=== PATIENT | male | born 1960 | race Caucasian/White ===

== ENCOUNTER 2018-02-04 17:04 | Inpatient (IN) ==
[2018-02-04] MEDS ORDERED: ONDANSETRON 4 MG/2 ML VIAL IV PRN (17:20)
[2018-02-04] MEDS ORDERED: ACETAMINOPHEN 325 MG TABLET PO PRN (17:20)
[2018-02-04] MEDS ORDERED: ALUM/MAG/SIMETH/LIDO VISC 1:1 30 ML BOTTLE PO PRN (17:20)
[2018-02-04] MEDS ORDERED: MORPHINE 4 MG/1 ML VIAL IV PRN (17:20)
[2018-02-04] MEDS ORDERED: TICAGRELOR 90 MG TABLET PO ONE (17:20)
[2018-02-04] MEDS ORDERED: ZALEPLON 5 MG CAPSULE PO PRN (17:20)
[2018-02-04] MEDS ORDERED: MAGNESIUM HYDROXIDE SUSP 30 ML UDCUP PO PRN (17:20)
[2018-02-04] MEDS ORDERED: POTASSIUM CHLORIDE RIDER 10 MEQ in PREMIX 1 EACH IV PRN (17:27)
[2018-02-04] MEDS ORDERED: MAGNESIUM SULF RIDER 2 GM in PREMIX 1 EACH IV PRN (17:27)
[2018-02-04] MEDS ORDERED: diphenhydrAMINE CAP 25 MG CAPSULE PO PRN (17:28)
[2018-02-04] MEDS ORDERED: NITROGLYCERIN 2% OINT 1 INCH/GM PACK TOP SCH (18:00)
[2018-02-04 19:35] LABS: Basophils % 0.3 % (0.0-0.8); Eosinophils # 0.1 10*3/uL (0.0-0.87); Eosinophils % 0.6 % (0.00-10.9); Hemoglobin 15.4 GM/DL (14.0-18.0); Immature Granulocytes % 0.5 %; Immature Granulocytes Absolute 0.06 #; Lymphocytes % 24.4 % (21.2-54.2); Mean Corpuscular HGB Conc 36.7 GM/DL (32-36); Mean Corpuscular Hemoglobin 33 PG (27-34); Mean Corpuscular Volume 90.7 FL (87-102); Monocytes # 0.9 10*3/uL (0.11-0.8); Monocytes % 7.1 % (1.7-12.7); Neutrophils # 8.3 10*3/uL (1.4-7.4); Neutrophils % 67.1 % (38.7-73.9); Platelet Count 137 T/CUMM (130-400); Red Blood Count 4.63 MC/CUMM (3.8-5.5); White Blood Count 12.4 T/CUMM (4-12)
[2018-02-04 19:49] LABS: PT Patient Result 10.6 SECS
[2018-02-04 19:56] LABS: Albumin 3.6 G/DL (3.4-5.0); Bilirubin,Total 1.5 MG/DL (0.2-1.0); Calcium 8.6 MG/DL (8.5-10.1); Osmolality,Calculated 278.4 MOS/KG (273-304); Potassium 3.8 MMOL/L (3.5-5.1); Total Protein 6.7 G/DL (6.4-8.3)
[2018-02-04] MEDS ORDERED: ROSUVASTATIN 20 MG TABLET PO SCH (21:00)
[2018-02-04] MEDS ORDERED: ENALAPRIL 2.5 MG TABLET PO SCH (21:00)
[2018-02-04] MEDS ORDERED: CARVEDILOL 6.25 MG TABLET PO SCH (21:00)
[2018-02-04] MEDS ORDERED: HEPARIN/NACL 0.9% 2 UNITS/ML 1,000 ML IV ONE (21:25)
[2018-02-04] MEDS ORDERED: VERAPAMIL 5 MG/2 ML VIAL ONE (21:26)
[2018-02-04] MEDS ORDERED: NITROGLYCERIN DRIP 50 MG/250 ML BOTTLE IV ONE (21:26)
[2018-02-04] MEDS ORDERED: DIAZEPAM 5 MG TABLET PO ONE (21:30)
[2018-02-04] MEDS ORDERED: diphenhydrAMINE CAP 25 MG CAPSULE PO ONE (21:30)
[2018-02-04] MEDS ORDERED: fentaNYL 100 MCG/2 ML VIAL ONE (21:36)
[2018-02-04] MEDS ORDERED: MIDAZOLAM 2 MG/2 ML VIAL ONE ×2 (21:36→21:50)
[2018-02-04] MEDS ORDERED: LIDOCAINE 1% 20 ML VIAL ONE (21:42)
[2018-02-04] MEDS ORDERED: ENOXAPARIN 60 MG/0.6 ML SYRINGE ONE (21:49)
[2018-02-04] MEDS ORDERED: VANCOMYCIN 1,000 MG VIAL ONE (22:59)
[2018-02-04] MEDS ORDERED: TISSUE ADHESIVE 1 EACH APPLICATOR TOP ONE (22:59)
[2018-02-04] MEDS ORDERED: PAPAVERINE 60 MG/2 ML VIAL ONE (22:59)
[2018-02-04] MEDS ORDERED: CEFUROXIME INJ 1,500 MG in SYRINGE 1 EACH IV ONE (23:30)
[2018-02-05] MEDS ORDERED: CEFUROXIME 1,500 MG VIAL ONE (00:01)
[2018-02-05] MEDS ORDERED: SODIUM CHLORIDE 0.45% 1,000 ML IV SCH (00:30)
[2018-02-05 00:32] LABS: ABG Base Excess -0.6 MMOL/L (-2.5-2.5); ABG Oxygen Saturation 99.9 % (95-100); ABG PCO2 35.1 MM HG (35-48); ABG PH 7.427 (7.35-7.45); ABG TCO2 19.8 MMOL/L (23-27); Glucose Heart Surgery 118 MG/DL (74-106); Hematocrit Heart Surgery 43.6 PERCENT (42-52); Hemoglobin Heart Surgery 14.2 G/DL (14.0-18.0); Ionized Calcium Arterial 1.15 MMOL/L (1.21-1.46); PCO2 Patient Temp Arterial 35.1 MMHG; PH Patient Temp Arterial 7.427; Patient Temperature 37 CELCIUS; Potassium Heart/CVR 4.2 MMOL/L (3.5-5.1); Sodium Heart/CVR 137 MMOL/L (135-145)
[2018-02-05 01:26] LABS: Apearance,Urine CLEAR (Clear); Bilirubin,Urine Negative (Negative); Blood, Urine Negative (Negative); Glucose,Urine (UA) Negative (Negative); Ketones,Urine Negative (Negative); Mucus,Urine Occasional /LPF (Occasional); Nitrite,Urine Negative (Negative); Protein,Urine Negative; RBC,Urine <1 /HPF (0-4); Squamous Epithelial Cell,Urine Occasional /HPF (0-10); Urine Color Yellow (Yellow); Urine Specific Gravity 1.053 (1.001-1.035)
[2018-02-05] MEDS ORDERED: CALCIUM CHLORIDE 1,000 MG/10 ML SYRINGE IV ONE (01:48)
[2018-02-05] MEDS ORDERED: EPINEPHrine 1 MG/10 ML SYRINGE ONE (01:48)
[2018-02-05 02:21] LABS: Hematocrit Heart Surgery 31.3 PERCENT (42-52); Hemoglobin Heart Surgery 10.1 G/DL (14.0-18.0); PCO2 Patient Temp Venous 40.9 MM HG; PH Patient Temp Venous 7.387; PO2 Patient Temp Venous 42.4 MM HG; Potassium Heart/CVR 5.2 MMOL/L (3.5-5.1); VBG Base Excess -0.3 MEQ/L (0-4); VBG HCO3 23.8 MEQ/L (24-28); VBG Oxygen Saturation 79.4 %; VBG PCO2 40.9 MMHG (41-51); VBG PH 7.387; VBG PO2 42.4 MMHG (17-40)
[2018-02-05 02:59] LABS: Hematocrit Heart Surgery 34.7 PERCENT (42-52); Hemoglobin Heart Surgery 11.3 G/DL (14.0-18.0); PCO2 Patient Temp Venous 39.6 MM HG; PH Patient Temp Venous 7.397; PO2 Patient Temp Venous 45.7 MM HG; Potassium Heart/CVR 5.2 MMOL/L (3.5-5.1); VBG Base Excess -0.3 MEQ/L (0-4); VBG HCO3 23.9 MEQ/L (24-28); VBG Oxygen Saturation 83.2 %; VBG PCO2 39.6 MMHG (41-51); VBG PH 7.397; VBG PO2 45.7 MMHG (17-40)
[2018-02-05] MEDS ORDERED: THROMBIN TOPICAL (RECOMBINANT) 5,000 UNIT VIAL TOP ONE (03:51)
[2018-02-05 03:59] LABS: ABG PCO2 35.8 MM HG (35-48); ABG PH 7.387 (7.35-7.45); ABG TCO2 19.3 MMOL/L (23-27); Glucose Heart Surgery 245 MG/DL (74-106); Hematocrit Heart Surgery 34.3 PERCENT (42-52); Hemoglobin Heart Surgery 11.1 G/DL (14.0-18.0); PCO2 Patient Temp Arterial 35.8 MMHG; PH Patient Temp Arterial 7.387; Patient Temperature 37 CELCIUS; Potassium Heart/CVR 4.7 MMOL/L (3.5-5.1); Sodium Heart/CVR 132 MMOL/L (135-145)
[2018-02-05] MEDS ORDERED: PROTAMINE SULFATE 250 MG/25 ML VIAL IV ONE (03:59)
[2018-02-05] MEDS ORDERED: MAGNESIUM SULFATE 10 GM/20 ML VIAL IV ONE (03:59)
[2018-02-05] MEDS ORDERED: ALBUMIN 25% 25 GM/100 ML VIAL IV ONE (03:59)
[2018-02-05] MEDS ORDERED: DEXTROSE 5% KCL 20 MEQ 20 MEQ/1,000 ML BAG IV ONE (03:59)
[2018-02-05] MEDS ORDERED: HEPARIN 10,000 UNIT/10 ML VIAL ONE (03:59)
[2018-02-05] MEDS ORDERED: SODIUM BICARBONATE 50 MEQ/50 ML SYRINGE IV ONE (03:59)
[2018-02-05] MEDS ORDERED: PROTAMINE SULFATE 50 MG/5 ML VIAL IV ONE (04:00)
[2018-02-05] MEDS ORDERED: MANNITOL 12.5 GM/50 ML VIAL IV ONE (04:00)
[2018-02-05] MEDS ORDERED: FUROSEMIDE 20 MG/2 ML VIAL ONE (04:00)
[2018-02-05] MEDS ORDERED: methylPREDNISolone SOD SUC 1,000 MG/8 ML VIAL ONE (04:00)
[2018-02-05] MEDS ORDERED: ALBUMIN 5% 12.5 GM/250 ML VIAL IV ONE ×2 (04:07→05:45)
[2018-02-05] MEDS: PHENYLEPHRINE DRIP 40 MG/250 ML PREMIX IV PRN ×2 (05:00→13:30)
[2018-02-05] MEDS ORDERED: MIDAZOLAM 2 MG/2 ML VIAL ONE ×2 (05:18→05:42)
[2018-02-05] MEDS ORDERED: CALCIUM CHLORIDE 1,000 MG/10 ML VIAL IV ONE (05:36)
[2018-02-05] MEDS ORDERED: PROPOFOL 200 MG/20 ML VIAL IV ONE (05:36)
[2018-02-05] MEDS ORDERED: SEVOFLURANE 1 UNIT/15 MINUTE INH ONE (05:37)
[2018-02-05] MEDS ORDERED: MIDAZOLAM 10 MG/2 ML VIAL ONE ×2 (05:37→06:07)
[2018-02-05] MEDS ORDERED: HEPARIN/NACL 0.9% 2 UNITS/ML 500 ML IV ONE (05:37)
[2018-02-05] MEDS ORDERED: PHENYLEPHRINE 10 MG/1 ML VIAL IV ONE (05:38)
[2018-02-05] MEDS ORDERED: NITROGLYCERIN DRIP 50 MG/250 ML BOTTLE IV ONE (05:38)
[2018-02-05] MEDS ORDERED: ePHEDrine 50 MG/ML AMP ONE (05:38)
[2018-02-05] MEDS ORDERED: VECURONIUM 10 MG VIAL IV ONE (05:38)
[2018-02-05] MEDS ORDERED: PHENYLEPHRINE 1 MG/10 ML SYRINGE IV ONE (05:38)
[2018-02-05] MEDS ORDERED: ETOMIDATE 40 MG/20 ML VIAL IV ONE (05:38)
[2018-02-05] MEDS ORDERED: AMINOCAPROIC ACID 5,000 MG/20 ML VIAL IV ONE (05:38)
[2018-02-05] MEDS ORDERED: SUCCINYLCHOLINE 200 MG/10 ML VIAL ONE (05:39)
[2018-02-05] MEDS ORDERED: SODIUM CHLORIDE 0.9% 2,000 ML IV ONE (05:39)
[2018-02-05] MEDS ORDERED: SODIUM CHLORIDE 0.9% 100 ML IV ONE (05:39)
[2018-02-05] MEDS ORDERED: LACTATED RINGERS 1,000 ML IV ONE (05:39)
[2018-02-05] MEDS ORDERED: SODIUM CHLORIDE 0.9% 250 ML IV ONE (05:39)
[2018-02-05] MEDS ORDERED: MIDAZOLAM 2 MG/2 ML VIAL IV ONE ×2 (05:45→06:30)
[2018-02-05] MEDS ORDERED: MAGNESIUM SULF RIDER 4 GM in PREMIX 1 EACH IV PRN (06:11)
[2018-02-05] MEDS ORDERED: MAGNESIUM SULF RIDER 2 GM in PREMIX 1 EACH IV PRN (06:11)
[2018-02-05] MEDS ORDERED: DEXTROSE 50% 25 GM/50 ML VIAL IV PRN ×2 (06:11)
[2018-02-05] MEDS ORDERED: POTASSIUM CHLORIDE RIDER 10 MEQ in PREMIX 1 EACH IV PRN (06:11)
[2018-02-05] MEDS ORDERED: INSULIN REGULAR 100 UNIT/ML IV PRN (06:11)
[2018-02-05] MEDS ORDERED: MORPHINE 10 MG/1 ML VIAL IV PRN (06:11)
[2018-02-05] MEDS ORDERED: CHLORHEXIDINE 4% SOLN 118 ML BOTTLE TOP PRN (06:11)
[2018-02-05] MEDS ORDERED: INSULIN REGULAR DRIP 100 ML IV SCH (06:11)
[2018-02-05] MEDS ORDERED: CALCIUM CHLORIDE 1,000 MG/10 ML SYRINGE IV PRN (06:11)
[2018-02-05] MEDS ORDERED: ACETAMINOPHEN 650 MG SUPP RECTAL PRN (06:11)
[2018-02-05] MEDS ORDERED: MIDAZOLAM 2 MG/2 ML VIAL IV PRN (06:11)
[2018-02-05] MEDS ORDERED: SODIUM CHLORIDE 0.9% 250 ML IV PRN (06:11)
[2018-02-05] MEDS: SODIUM CHLORIDE 0.45% 1,000 ML IV SCH ×3 (06:28→21:57)
[2018-02-05] MEDS: ALBUMIN 5% 12.5 GM in PREMIX 1 EACH IV PRN ×3 (06:28→13:15)
[2018-02-05 06:31] LABS: Hematocrit Heart Surgery 29.6 PERCENT (42-52); Hemoglobin Heart Surgery 9.6 G/DL (14.0-18.0); PCO2 Patient Temp Venous 45.4 MM HG; PH Patient Temp Venous 7.311; PO2 Patient Temp Venous 36.6 MM HG; Potassium Heart/CVR 3.7 MMOL/L (3.5-5.1); VBG Base Excess -3.3 MEQ/L (0-4); VBG HCO3 21.2 MEQ/L (24-28); VBG Oxygen Saturation 66.2 %; VBG PCO2 45.4 MMHG (41-51); VBG PH 7.311; VBG PO2 36.6 MMHG (17-40)
[2018-02-05 06:37] LABS: INR 1.1; PT Patient Result 11.7 SECS; Partial Thromboplastin Time 28.3 SECS (0-40)
[2018-02-05 06:41] LABS: Blood Urea Nitrogen 13 MG/DL (7-18); Calcium 7.4 MG/DL (8.5-10.1); Glucose 205 MG/DL (74-106); Osmolality,Calculated 282.5 MOS/KG (273-304); Sodium 139 MMOL/L (136-145)
[2018-02-05 06:42] LABS: Basophils % 0.1 % (0.0-0.8); Eosinophils % 0.1 % (0.00-10.9); Hematocrit 28.5 VOL% (42.0-52.0); Immature Granulocytes Absolute 0.18 #; Lymphocytes # 1.3 10*3/uL (1.4-4.0); Lymphocytes % 7.1 % (21.2-54.2); Mean Corpuscular HGB Conc 35.1 GM/DL (32-36); Mean Corpuscular Hemoglobin 33 PG (27-34); Mean Corpuscular Volume 93.8 FL (87-102); Mean Platelet Volume 11.3 FL (9.6-12.0); Monocytes # 1.2 10*3/uL (0.11-0.8); Monocytes % 6.3 % (1.7-12.7); Neutrophils # 15.6 10*3/uL (1.4-7.4); Neutrophils % 85.4 % (38.7-73.9)
[2018-02-05 06:43] LABS: Red Blood Count 3.04 MC/CUMM (3.8-5.5); White Blood Count 18.2 T/CUMM (4-12)
[2018-02-05 06:44] LABS: Lactic Acid 2.8 MMOL/L (0.4-2.0); Platelet Count 186 T/CUMM (130-400)
[2018-02-05 06:59] LABS: ABG Base Excess -2.4 MMOL/L (-2.5-2.5); ABG HCO3 22.4 MMOL/L (20-26); ABG Oxygen Saturation 99.7 % (95-100); ABG PCO2 39.7 MM HG (35-48); ABG PH 7.365 (7.35-7.45); ABG TCO2 20.8 MMOL/L (23-27); Glucose Heart Surgery 215 MG/DL (74-106); Hematocrit Heart Surgery 29.8 PERCENT (42-52); Hemoglobin Heart Surgery 9.6 G/DL (14.0-18.0); Potassium Heart/CVR 4.1 MMOL/L (3.5-5.1)
[2018-02-05 07:10] LABS: Band Neutrophils 6 % (0-10); Hypochromasia 1+; Lymphocytes 8 % (20-55); Segmented Neutrophils 85 % (50-85); Total Cells Counted 100
[2018-02-05 07:11] LABS: Microcytosis 1+; Platelet Estimate Adequate
[2018-02-05] MEDS: MORPHINE 4 MG/1 ML VIAL IV PRN ×5 (07:54→19:06)
[2018-02-05] MEDS: DEXMEDETOMIDINE 200 MCG in SODIUM CHLORIDE 0.9% 48 ML IV PRN ×2 (08:04→12:15)
[2018-02-05] MEDS ORDERED: CHLORHEXIDINE 4% SOLN 118 ML BOTTLE TOP SCH (09:00)
[2018-02-05] MEDS ORDERED: ASPIRIN EC 81 MG TABLET PO SCH (09:00)
[2018-02-05] MEDS ORDERED: PANTOPRAZOLE 40 MG TABLET PO SCH (09:00)
[2018-02-05] MEDS ORDERED: CHLORHEXIDINE 0.12% ORAL RINSE 60 ML BOTTLE SWISH/SPIT SCH (09:00)
[2018-02-05] MEDS ORDERED: ASPIRIN EC 325 MG TABLET PO SCH (09:00)
[2018-02-05] MEDS: CHLORHEXIDINE 0.12% ORAL RINSE 60 ML BOTTLE SWISH/SPIT SCH ×2 (09:05→21:08)
[2018-02-05] MEDS: ONDANSETRON 4 MG/2 ML VIAL IV PRN (11:00)
[2018-02-05 11:10] LABS: ABG Base Excess -2.7 MMOL/L (-2.5-2.5); ABG HCO3 21.8 MMOL/L (20-26); ABG Oxygen Saturation 96.6 % (95-100); ABG PCO2 36.4 MM HG (35-48); ABG PH 7.395 (7.35-7.45); ABG PO2 96.8 MM HG (80-95); ABG TCO2 22.9 MMOL/L (23-27); Glucose Heart Surgery 167 MG/DL (74-106); Hemoglobin Heart Surgery 10.3 G/DL (14.0-18.0); Potassium Heart/CVR 3.7 MMOL/L (3.5-5.1)
[2018-02-05] MEDS: POTASSIUM CHLORIDE RIDER 20 MEQ in PREMIX 1 EACH IV PRN (11:35)
[2018-02-05] MEDS: CEFUROXIME INJ 1,500 MG in SODIUM CHLORIDE 0.9% 100 ML IV SCH (11:50)
[2018-02-05 12:54] LABS: ABG Base Excess -2.4 MMOL/L (-2.5-2.5); ABG HCO3 22.4 MMOL/L (20-26); ABG Oxygen Saturation 97.6 % (95-100); ABG PCO2 38.5 MM HG (35-48); ABG PH 7.374 (7.35-7.45); ABG PO2 88.6 MM HG (80-95); ABG TCO2 20.7 MMOL/L (23-27); Glucose Heart Surgery 145 MG/DL (74-106); Hemoglobin Heart Surgery 9.4 G/DL (14.0-18.0); Potassium Heart/CVR 4.1 MMOL/L (3.5-5.1)
[2018-02-05] MEDS: KETOROLAC 15 MG/1 ML VIAL IV PRN (18:58)
[2018-02-05] MEDS: INSULIN REGULAR 100 UNIT/ML SUBCUT SCH (20:08)
[2018-02-05] MEDS ORDERED: METOPROLOL TARTRATE 5 MG/5 ML VIAL IV ONE (20:54)
[2018-02-05] MEDS ORDERED: ASPIRIN 325 MG TABLET PO ONE (20:54)
[2018-02-05] MEDS: COSOPT PF BOTH EYES SCH (22:00)
[2018-02-06] MEDS: INSULIN REGULAR 100 UNIT/ML SUBCUT SCH ×7 (00:02→23:49)
[2018-02-06] MEDS: CEFUROXIME INJ 1,500 MG in SODIUM CHLORIDE 0.9% 100 ML IV SCH ×2 (00:05→11:38)
[2018-02-06] MEDS: SODIUM CHLORIDE 0.45% 1,000 ML IV SCH ×2 (01:14→13:16)
[2018-02-06 04:42] LABS: Basophils % 0.1 % (0.0-0.8); Hematocrit 23.8 VOL% (42.0-52.0); Hemoglobin 8.6 GM/DL (14.0-18.0); Immature Granulocytes Absolute 0.19 #; Lymphocytes # 0.9 10*3/uL (1.4-4.0); Lymphocytes % 4.5 % (21.2-54.2); Mean Corpuscular HGB Conc 36.1 GM/DL (32-36); Mean Corpuscular Hemoglobin 34 PG (27-34); Mean Corpuscular Volume 93.3 FL (87-102); Mean Platelet Volume 11.8 FL (9.6-12.0); Monocytes # 1.4 10*3/uL (0.11-0.8); Monocytes % 7.2 % (1.7-12.7); Neutrophils # 17.4 10*3/uL (1.4-7.4); Neutrophils % 87.2 % (38.7-73.9); Platelet Count 109 T/CUMM (130-400); Red Blood Count 2.55 MC/CUMM (3.8-5.5); Red Cell Distribution Width 12.2 % (9.3-17.3); White Blood Count 19.9 T/CUMM (4-12)
[2018-02-06 04:49] LABS: Calcium 7.4 MG/DL (8.5-10.1); Osmolality,Calculated 284.3 MOS/KG (273-304); Potassium 4.1 MMOL/L (3.5-5.1)
[2018-02-06] MEDS: POTASSIUM CHLORIDE RIDER 20 MEQ in PREMIX 1 EACH IV PRN (05:01)
[2018-02-06] MEDS: ONDANSETRON 4 MG/2 ML VIAL IV PRN (05:02)
[2018-02-06] MEDS: KETOROLAC 15 MG/1 ML VIAL IV PRN ×2 (05:05→21:01)
[2018-02-06 05:06] LABS: Band Neutrophils 5 % (0-10); Lymphocytes 6 % (20-55); Segmented Neutrophils 87 % (50-85)
[2018-02-06 05:07] LABS: Platelet Estimate Adequate; Total Cells Counted 100
[2018-02-06] MEDS: MORPHINE 4 MG/1 ML VIAL IV PRN ×3 (05:11→15:23)
[2018-02-06] MEDS: ASPIRIN EC 325 MG TABLET PO SCH (08:47)
[2018-02-06] MEDS: COSOPT PF BOTH EYES SCH ×2 (08:48→21:55)
[2018-02-06] MEDS: CHLORHEXIDINE 0.12% ORAL RINSE 60 ML BOTTLE SWISH/SPIT SCH ×2 (08:51→21:55)
[2018-02-06] MEDS: PANTOPRAZOLE 40 MG VIAL IV SCH (08:51)
[2018-02-06] MEDS ORDERED: DORZOLAMIDE/TIMOLOL OPH SOLN 10 ML BOTTLE BOTH EYES SCH (09:00)
[2018-02-06] MEDS ORDERED: FUROSEMIDE 40 MG/4 ML VIAL IV ONE ×2 (09:30→20:17)
[2018-02-06] MEDS: METOPROLOL TARTRATE 25 MG TABLET PO SCH ×2 (10:17→21:02)
[2018-02-06] MEDS: FUROSEMIDE 40 MG TABLET PO SCH (10:23)
[2018-02-06] MEDS ORDERED: ALBUTEROL 2.5 MG/3 ML NEB RESP TX PRN (15:41)
[2018-02-06 16:56] LABS: ABG Base Excess 0.1 MMOL/L (-2.5-2.5); ABG HCO3 24.4 MMOL/L (20-26); ABG Oxygen Saturation 93.8 % (95-100); ABG PCO2 33.9 MM HG (35-48); ABG PH 7.451 (7.35-7.45); ABG PO2 63.8 MM HG (80-95); ABG TCO2 21.4 MMOL/L (23-27)
[2018-02-06 18:45] LABS: Hematocrit 27.3 VOL% (42.0-52.0); Hemoglobin 9.7 GM/DL (14.0-18.0)
[2018-02-06] MEDS ORDERED: ALBUMIN 5% 12.5 GM in PREMIX 1 EACH IV ONE (20:23)
[2018-02-06] MEDS ORDERED: LEVOFLOXACIN INJ 750 MG in PREMIX 1 EACH IV SCH (21:00)
[2018-02-06] MEDS: ATORVASTATIN 40 MG TABLET PO SCH (21:02)
[2018-02-06] MEDS: AZTREONAM 1,000 MG in SYRINGE 1 EACH IV SCH (21:54)
[2018-02-06] MEDS: VANCOMYCIN INJ 1,750 MG in SODIUM CHLORIDE 0.9% 500 ML IV SCH (22:48)
[2018-02-07 05:00] LABS: Hematocrit 24.8 VOL% (42.0-52.0); Hemoglobin 8.5 GM/DL (14.0-18.0); Mean Corpuscular HGB Conc 34.3 GM/DL (32-36); Mean Corpuscular Hemoglobin 31 PG (27-34); Mean Corpuscular Volume 91.5 FL (87-102); Red Blood Count 2.71 MC/CUMM (3.8-5.5); Red Cell Distribution Width 16.4 % (9.3-17.3); White Blood Count 18.3 T/CUMM (4-12)
[2018-02-07 05:01] LABS: Basophils % 0.1 % (0.0-0.8); Immature Granulocytes % 0.8 %; Immature Granulocytes Absolute 0.15 #; Lymphocytes # 1.4 10*3/uL (1.4-4.0); Lymphocytes % 7.4 % (21.2-54.2); Mean Platelet Volume 11.8 FL (9.6-12.0); Monocytes # 1.7 10*3/uL (0.11-0.8); Neutrophils # 15.1 10*3/uL (1.4-7.4); Neutrophils % 82.7 % (38.7-73.9); Platelet Count 100 T/CUMM (130-400)
[2018-02-07 05:13] LABS: Calcium 7.8 MG/DL (8.5-10.1); Osmolality,Calculated 286.3 MOS/KG (273-304); Potassium 4.2 MMOL/L (3.5-5.1)
[2018-02-07 05:15] LABS: Calcium 7.6 MG/DL (8.5-10.1); Osmolality,Calculated 287.3 MOS/KG (273-304); Potassium 4.2 MMOL/L (3.5-5.1)
[2018-02-07] MEDS: INSULIN REGULAR 100 UNIT/ML SUBCUT SCH ×5 (05:36→20:40)
[2018-02-07] MEDS: VANCOMYCIN INJ 1,750 MG in SODIUM CHLORIDE 0.9% 500 ML IV SCH ×3 (05:47→22:02)
[2018-02-07] MEDS: PANTOPRAZOLE 40 MG VIAL IV SCH (08:29)
[2018-02-07] MEDS: METOPROLOL TARTRATE 25 MG TABLET PO SCH ×2 (08:29→20:35)
[2018-02-07] MEDS: ASPIRIN EC 325 MG TABLET PO SCH (08:29)
[2018-02-07] MEDS: FUROSEMIDE 40 MG TABLET PO SCH (08:29)
[2018-02-07] MEDS: AZTREONAM 1,000 MG in SYRINGE 1 EACH IV SCH ×2 (08:30→20:35)
[2018-02-07] MEDS: COSOPT PF BOTH EYES SCH ×2 (08:35→20:41)
[2018-02-07] MEDS ORDERED: LOSARTAN 25 MG TABLET PO SCH (09:00)
[2018-02-07] MEDS: CHLORHEXIDINE 0.12% ORAL RINSE 60 ML BOTTLE SWISH/SPIT SCH ×2 (09:13→20:35)
[2018-02-07] MEDS ORDERED: SODIUM CHLORIDE 0.9% 1,000 ML IV PRN (09:15)
[2018-02-07] MEDS: BISACODYL 5 MG TABLET PO SCH (10:42)
[2018-02-07] MEDS: DOCUSATE SODIUM 100 MG CAPSULE PO SCH ×2 (10:42→20:34)
[2018-02-07] MEDS: ATORVASTATIN 40 MG TABLET PO SCH (20:35)
[2018-02-08] MEDS: INSULIN REGULAR 100 UNIT/ML SUBCUT SCH ×6 (02:03→21:02)
[2018-02-08] MEDS: VANCOMYCIN INJ 1,750 MG in SODIUM CHLORIDE 0.9% 500 ML IV SCH ×3 (04:49→22:05)
[2018-02-08 05:39] LABS: Basophils % 0.1 % (0.0-0.8); Eosinophils # 0.1 10*3/uL (0.0-0.87); Eosinophils % 0.5 % (0.00-10.9); Hematocrit 25.6 VOL% (42.0-52.0); Hemoglobin 9.1 GM/DL (14.0-18.0); Immature Granulocytes % 0.8 %; Lymphocytes % 16.1 % (21.2-54.2); Mean Corpuscular HGB Conc 35.5 GM/DL (32-36); Mean Corpuscular Hemoglobin 32 PG (27-34); Mean Corpuscular Volume 88.6 FL (87-102); Mean Platelet Volume 11.7 FL (9.6-12.0); Monocytes % 8.1 % (1.7-12.7); NRBC # 0.03 10*3/uL; Neutrophils # 9.1 10*3/uL (1.4-7.4); Neutrophils % 74.4 % (38.7-73.9); Platelet Count 95 T/CUMM (130-400); Red Blood Count 2.89 MC/CUMM (3.8-5.5); Red Cell Distribution Width 16.3 % (9.3-17.3); White Blood Count 12.2 T/CUMM (4-12)
[2018-02-08 06:06] LABS: Band Neutrophils 8 % (0-10); Eosinophils 1 % (0-10); Lymphocytes 15 % (20-55); Platelet Estimate Adequate; Segmented Neutrophils 65 % (50-85); Total Cells Counted 100
[2018-02-08 06:07] LABS: Anisocytosis 1+; Polychromasia Slight
[2018-02-08 06:14] LABS: Calcium 7.7 MG/DL (8.5-10.1); Osmolality,Calculated 288.8 MOS/KG (273-304)
[2018-02-08] MEDS: BISACODYL 5 MG TABLET PO SCH (08:42)
[2018-02-08] MEDS: METOPROLOL TARTRATE 25 MG TABLET PO SCH ×2 (08:42→20:56)
[2018-02-08] MEDS: ASPIRIN EC 325 MG TABLET PO SCH (08:42)
[2018-02-08] MEDS: DOCUSATE SODIUM 100 MG CAPSULE PO SCH ×2 (08:42→20:56)
[2018-02-08] MEDS: POLYETHYLENE GLYCOL POWDER 17 GM PACK PO SCH (08:42)
[2018-02-08] MEDS: FUROSEMIDE 40 MG TABLET PO SCH (08:42)
[2018-02-08] MEDS: PANTOPRAZOLE 40 MG VIAL IV SCH (08:42)
[2018-02-08] MEDS: COSOPT PF BOTH EYES SCH ×2 (08:47→21:55)
[2018-02-08] MEDS: CHLORHEXIDINE 0.12% ORAL RINSE 60 ML BOTTLE SWISH/SPIT SCH ×2 (08:47→21:55)
[2018-02-08] MEDS: AZTREONAM 1,000 MG in SYRINGE 1 EACH IV SCH ×2 (08:47→20:55)
[2018-02-08] MEDS: ATORVASTATIN 40 MG TABLET PO SCH (20:56)
[2018-02-09] MEDS: INSULIN REGULAR 100 UNIT/ML SUBCUT SCH ×4 (01:11→12:09)
[2018-02-09] MEDS: VANCOMYCIN INJ 1,750 MG in SODIUM CHLORIDE 0.9% 500 ML IV SCH ×2 (06:14→13:02)
[2018-02-09 06:41] LABS: Calcium 8.4 MG/DL (8.5-10.1)
[2018-02-09] MEDS ORDERED: CLOPIDOGREL 300 MG TABLET PO ONE (07:43)
[2018-02-09] MEDS ORDERED: metFORMIN 500 MG TABLET PO SCH (08:00)
[2018-02-09] MEDS: DOCUSATE SODIUM 100 MG CAPSULE PO SCH (08:43)
[2018-02-09] MEDS: BISACODYL 5 MG TABLET PO SCH (08:46)
[2018-02-09] MEDS: FUROSEMIDE 40 MG TABLET PO SCH (08:47)
[2018-02-09] MEDS: METOPROLOL TARTRATE 25 MG TABLET PO SCH (08:47)
[2018-02-09] MEDS: PANTOPRAZOLE 40 MG VIAL IV SCH (08:48)
[2018-02-09] MEDS: AZTREONAM 1,000 MG in SYRINGE 1 EACH IV SCH (08:51)
[2018-02-09] MEDS ORDERED: LOSARTAN 25 MG TABLET PO SCH (09:00)
[2018-02-09] MEDS ORDERED: ASPIRIN EC 81 MG TABLET PO SCH (09:00)
[2018-02-09] MEDS: POLYETHYLENE GLYCOL POWDER 17 GM PACK PO SCH (09:44)
[2018-02-09] MEDS ORDERED: SODIUM PHOSPHATE ENEMA 133 ML BOTTLE RECTAL ONE (09:55)
[2018-02-09] MEDS: COSOPT PF BOTH EYES SCH (10:11)
[2018-02-09] MEDS: CHLORHEXIDINE 0.12% ORAL RINSE 60 ML BOTTLE SWISH/SPIT SCH (10:11)
[2018-02-09 12:07] VITALS: BP 109/57
[2018-02-10] MEDS ORDERED: CLOPIDOGREL 75 MG TABLET PO SCH (09:00)
== END 2018-02-09 15:29 | disposition home health service (06) | DRG 234 ==
LOC: N.TELES 19:06 → N.CVR 02-05 04:31 → N.TELES 02-06 12:52
PROVIDERS: ADMIT Internal Medicine Cardiovascular Disease; ATTEND Internal Medicine Cardiovascular Disease

== ENCOUNTER 2021-01-05 23:11 | Observation (INO) ==
[2021-01-05] MEDS ORDERED: DILTIAZEM 50 MG/10 ML VIAL IV STA (23:52)
[2021-01-06 00:22] LABS: Basophils % 0.4 % (0.0-0.8); Eosinophils # 0.1 10*3/uL (0.0-0.87); Eosinophils % 0.6 % (0.00-10.9); Hematocrit 42.8 VOL% (42.0-52.0); Immature Granulocytes % 0.2 %; Immature Granulocytes Absolute 0.02 #; Lymphocytes # 3.2 10*3/uL (1.4-4.0); Lymphocytes % 34.2 % (21.2-54.2); Mean Corpuscular Volume 93.4 FL (87-102); Mean Platelet Volume 10.7 FL (9.6-12.0); Neutrophils % 54.6 % (38.7-73.9); Platelet Count 161 T/CUMM (130-400); Red Blood Count 4.58 MC/CUMM (3.8-5.5); Red Cell Distribution Width 11.9 % (9.3-17.3); White Blood Count 9.4 T/CUMM (4-12)
[2021-01-06] MEDS: DILTIAZEM INJ 100 MG in SODIUM CHLORIDE 0.9% 100 ML IV SCH ×2 (00:28→23:28)
[2021-01-06 00:37] LABS: Albumin 3.8 G/DL (3.4-5.0); Calcium 8.7 MG/DL (8.5-10.1); Potassium 3.8 MMOL/L (3.5-5.1); Total Protein 6.7 G/DL (6.4-8.2)
[2021-01-06] MEDS ORDERED: GLUCAGON 1 MG VIAL IM PRN (01:27)
[2021-01-06] MEDS ORDERED: diphenhydrAMINE CAP 25 MG CAPSULE PO PRN (01:27)
[2021-01-06] MEDS ORDERED: ACETAMINOPHEN 325 MG TABLET PO PRN (01:27)
[2021-01-06] MEDS ORDERED: ONDANSETRON 4 MG/2 ML VIAL IV PRN (01:27)
[2021-01-06] MEDS ORDERED: guaiFENesin/DM ER 600-30 MG TABLET PO PRN (01:27)
[2021-01-06] MEDS ORDERED: DEXTROSE 50% 25 GM/50 ML VIAL IV PRN (01:27)
[2021-01-06] MEDS ORDERED: NICOTINE 21 MG/24 HR PATCH TRANSDERM PRN (01:27)
[2021-01-06] MEDS ORDERED: hydrALAZINE 20 MG/1 ML VIAL IV PRN (01:27)
[2021-01-06] MEDS ORDERED: ZALEPLON 5 MG CAPSULE PO PRN (01:27)
[2021-01-06] MEDS ORDERED: MORPHINE 2 MG/1 ML SYRINGE IV PRN (01:27)
[2021-01-06] MEDS ORDERED: ENOXAPARIN 100 MG/ML SYRINGE SUBCUT STA (01:30)
[2021-01-06] MEDS ORDERED: METOPROLOL TARTRATE 25 MG TABLET PO STA (01:32)
[2021-01-06] MEDS: METOPROLOL TARTRATE 25 MG TABLET PO SCH ×2 (02:09→09:00)
[2021-01-06] MEDS ORDERED: ENOXAPARIN 120 MG/0.8 ML SYRINGE SUBCUT SCH (05:00)
[2021-01-06 05:45] LABS: Basophils % 0.3 % (0.0-0.8); Eosinophils # 0.1 10*3/uL (0.0-0.87); Eosinophils % 0.7 % (0.00-10.9); Hematocrit 40.9 VOL% (42.0-52.0); Hemoglobin 14.7 GM/DL (14.0-18.0); Immature Granulocytes % 0.3 %; Immature Granulocytes Absolute 0.03 #; Lymphocytes % 33.7 % (21.2-54.2); Mean Corpuscular HGB Conc 35.9 GM/DL (32-36); Mean Corpuscular Volume 92.3 FL (87-102); Mean Platelet Volume 11.3 FL (9.6-12.0); Platelet Count 153 T/CUMM (130-400); Red Blood Count 4.43 MC/CUMM (3.8-5.5); Red Cell Distribution Width 11.9 % (9.3-17.3); White Blood Count 8.8 T/CUMM (4-12)
[2021-01-06 06:33] LABS: Calcium 8.6 MG/DL (8.5-10.1); Osmolality,Calculated 289.7 MOS/KG (273-304); Potassium 3.8 MMOL/L (3.5-5.1); Risk Ratio 2.73; VLDL Cholesterol 16.6 MG/DL
[2021-01-06] MEDS: ASPIRIN EC 81 MG TABLET PO SCH (08:59)
[2021-01-06] MEDS: PANTOPRAZOLE 40 MG TABLET PO SCH (09:00)
[2021-01-06] MEDS ORDERED: CLOPIDOGREL 75 MG TABLET PO SCH (09:00)
[2021-01-06] MEDS: SOTALOL 80 MG TABLET PO SCH ×2 (12:06→23:27)
[2021-01-06] MEDS ORDERED: ATORVASTATIN 40 MG TABLET PO SCH (21:00)
[2021-01-06] MEDS: APIXABAN 5 MG TABLET PO SCH (21:00)
[2021-01-07 05:32] LABS: Basophils % 0.4 % (0.0-0.8); Eosinophils # 0.1 10*3/uL (0.0-0.87); Eosinophils % 1.6 % (0.00-10.9); Hematocrit 36.6 VOL% (42.0-52.0); Hemoglobin 13.3 GM/DL (14.0-18.0); Immature Granulocytes % 0.1 %; Immature Granulocytes Absolute 0.01 #; Lymphocytes # 2.3 10*3/uL (1.4-4.0); Lymphocytes % 33.6 % (21.2-54.2); Mean Corpuscular HGB Conc 36.3 GM/DL (32-36); Mean Corpuscular Volume 92.2 FL (87-102); Mean Platelet Volume 11.1 FL (9.6-12.0); Monocytes % 8.2 % (1.7-12.7); Neutrophils % 56.1 % (38.7-73.9); Platelet Count 141 T/CUMM (130-400); Red Blood Count 3.97 MC/CUMM (3.8-5.5); Red Cell Distribution Width 11.6 % (9.3-17.3); White Blood Count 6.8 T/CUMM (4-12)
[2021-01-07 06:11] LABS: Calcium 8.5 MG/DL (8.5-10.1); Osmolality,Calculated 280.3 MOS/KG (273-304); Potassium 3.8 MMOL/L (3.5-5.1)
[2021-01-07 08:12] VITALS: BP 124/70
[2021-01-07] MEDS ORDERED: SOTALOL 80 MG TABLET PO SCH (09:00)
[2021-01-07] MEDS: ASPIRIN EC 81 MG TABLET PO SCH (09:14)
[2021-01-07] MEDS: APIXABAN 5 MG TABLET PO SCH (09:15)
[2021-01-07] MEDS: PANTOPRAZOLE 40 MG TABLET PO SCH (09:15)
== END 2021-01-07 12:52 | disposition home or self-care (01) ==
LOC: N.ED 23:11 → N.EDINP 23:11 → N.TELES 01-06 02:49
PROVIDERS: ADMIT Internal Medicine; ATTEND Internal Medicine